=== PATIENT | male | born 1955 | race Caucasian/White ===

== ENCOUNTER → 2021-01-28 10:12 | Outpatient (BNVA) | payer MEDICARE, SELFPAY | PROVIDERS: PCP Internal Medicine; Visit Provider Urology | DX: N40.0 Benign prostatic hyperplasia without lower urinary tract symptoms (principal) | CPT/HCPCS: 99202 ==

== ENCOUNTER → 2021-02-03 10:25 | Outpatient (BNVA) | payer MEDICARE, SELFPAY | PROVIDERS: PCP Internal Medicine; Visit Provider Surgery Vascular Surgery | DX: I80.8 Phlebitis and thrombophlebitis of other sites (principal) | CPT/HCPCS: 99202 ==

== ENCOUNTER 2021-12-05 10:50 | Outpatient (REF) | payer MEDICARE, SELFPAY ==
[2021-12-05 12:37] LABS: PSA,Total (Free>4and<10) 0.52 ng/mL (0.00-4.00)
== END 2021-12-05 10:51 | disposition home or self-care (01) ==
LOC: HO.LAB 10:50
PROVIDERS: PCP Internal Medicine; Visit Provider Urology
DX: Z12.5 Encounter for screening for malignant neoplasm of prostate (principal); N40.0 Benign prostatic hyperplasia without lower urinary tract symptoms
CPT/HCPCS: 36415; 84153

== ENCOUNTER 2021-12-13 10:38 | Emergency (ER) | payer MEDICARE, SELFPAY ==
--- NOTE | ~2021-12-13 | CT_ITS ---
EXAMINATION: CT CERVICAL SPINE WITHOUT CONTRAST CLINICAL INFORMATION: Fall, trauma, ETOH. COMPARISON: CT head 12/13/2021 TECHNIQUE: Multidetector volumetric CT imaging of the cervical spine is performed without contrast in the axial plane. Additional 2D reformatted coronal and sagittal images are generated on the CT workstation and uploaded to PACS. This CT examination was performed using dose optimization techniques as appropriate, variously including the following: *Automated exposure control *Adjustment of mA and/or kV according to patient size (this includes techniques or standardized protocols for targeted exams where dose is matched to indication/reason for exam; i.e. extremities or head) *Use of iterative reconstruction technique DLP: 508 mGy-cm FINDINGS: There is no vertebral compression fracture, fracture line, spondylolisthesis, or prevertebral soft tissue swelling. The craniocervical junction appears normal. The odontoid appears intact. There is normal cervical lordosis. There are degenerative disc changes with disc narrowing and vertebral spurring C4-C5, C5-C6, and C6-C7. There is variable facet degeneration, greatest left C2-C3. There is no apical pneumothorax. CT/CT cervical spine wo con IMPRESSION: 1. No acute bony abnormality or prevertebral soft tissue swelling. 2. Degenerative disc and degenerative facet changes.
--- NOTE | ~2021-12-13 | CT_ITS ---
EXAMINATION: CT HEAD WITHOUT CONTRAST CLINICAL INFORMATION: Fall, trauma, EtOH COMPARISON: Outside CT had noncontrast 11/07/2010 ([facility], [place]). TECHNIQUE: Contiguous axial imaging was performed from the skull base to vertex without intravenous administration of contrast. Additional 2-D coronal and sagittal reformatted images are generated on the CT workstation and uploaded to PACS. This CT examination was performed using dose optimization techniques as appropriate, variously including the following: *Automated exposure control *Adjustment of mA and/or kV according to patient size (this includes techniques or standardized protocols for targeted exams where dose is matched to indication/reason for exam; i.e. extremities or head) *Use of iterative reconstruction technique DLP: 854 mGy-cm FINDINGS: There is no intracranial hemorrhage, hematoma, or extra-axial fluid collection. The ventricles are normal in size. There is no hydrocephalus, edema, or mass effect. The mcdonald-white matter differentiation appears well preserved . There are scattered benign coarse calcifications along the falx. There is no visible acute territorial infarct or mass lesion. The calvarium appears intact. There is no pneumocephalus or orbital emphysema. There is circumferential thick rind of mucosal thickening right maxillary sinus and lesser circumferential thickening left maxillary sinus. No visible air-fluid levels. CT/CT head/brain wo con IMPRESSION: -No acute intracranial abnormality. -Mucosal thickening maxillary sinuses, greater on right.
[2021-12-13 10:51] VITALS: BP 116/52; BP 135/75; PULSE 85; PULSE 97; RESP 14; O2SAT 93; O2SAT 95; BMI 24.3
--- NOTE | 2021-12-13 11:00 | ECG_ITS ---
Test Reason : fall Blood Pressure : / mmHG Vent. Rate : 066 BPM Atrial Rate : 066 BPM P-R Int : 172 ms QRS Dur : 096 ms QT Int : 400 ms P-R-T Axes : 033 -24 042 degrees QTc Int : 419 ms Normal sinus rhythm with sinus arrhythmia Normal ECG No previous ECGs available Referred By: Anu Jose Electronically Signed By:JHON LÓPEZ
--- NOTE | 2021-12-13 11:01 | ED.FALL ---
HPI - Fall General Chief Complaint: Fall Stated Complaint: FALL/WEAK Time Seen by Provider: 12/13/21 10:51 Source: patient and EMS Mode of arrival: EMS Limitations: no limitations History of Present Illness HPI Narrative: Patient comes to the emergency room after falling. Patient admits that he has been having a rough time, recently broke up with his girlfriend. Patient has been drinking ?a lot ? of vodka. Patient was going to his physician's office this morning across the street to get checked up. Patient tripped, fell and hit his forehead. Patient states that he drank a lot and does not remember field loss consciousness or not. Patient denies any headache, no pain anywhere. Patient states that he was planning to go out golfing with his friends later today. Patient denies suicidal or homicidal ideation Related Data Home Medications Medication Instructions Recorded Confirmed albuterol sulfate 90 mcg/actuation 0 mcg inhalation 01/28/21 aerosol inhaler metoprolol succinate 25 mg 25 mg PO DAILY 01/28/21 tablet,extended release 24 hr Allergies Allergy/AdvReac Type Severity Reaction Status Date / Time No Known Allergies Allergy Verified 12/13/21 09:22 Review of Systems Review of Systems: Constitutional : No Weight loss, No Fever, No Chills, No Night Sweats, No Fatigue, No Malaise ENT/Mouth : No Hearing loss, No Ear Pain, No Nasal Congestion, No Sinus Pain, No Hoarseness, No sore throat, No Rhinorrhea, No Swallowing Difficulty Eyes: No Eye Pain, No Swelling, No Redness, No Foreign Body, No Discharge, No Vision Changes Cardiovascular : No Chest Pain, No SOB, No Dyspnea on Exertion, No Orthopnea, No Edema, No Palpitations Respiratory : No Cough, No Sputum, No Wheezing, No Smoke Exposure, No Dyspnea Gastrointestinal : No Nausea, No Vomiting, No Diarrhea, No Constipation, No abdominal Pain, No Hematochezia, No Melena Genitourinary : no irregular bleeding, No Dysuria, No Urinary Frequency, No Hematuria, No Urinary Incontinence, No Urgency, No Flank Pain, No Urinary Flow Changes, No Hesitancy Musculoskeletal : No joint pain, No Myalgias, No Joint Swelling Skin : Complaining a small abrasion to the forehead Neuro : No Weakness, No Numbness, No Paresthesias, No Loss of Consciousness, No Dizziness, No Headache Psych : No Anxiety/Panic, No Depression, No SI/HI/AH/VH, sad, recently split up with girlfriend Heme/Lymph: No Bruising, No Bleeding,No Lymphadenopathy Endocrine : No Polyuria, No Polydipsia, No Temperature Intolerance PMF Past Medical History Medical History Patient denies medical problems Surgical History History of surgery Social History Social History Patient Tobacco Use Status: Never used Tobacco Advance Directives: Yes Advance Directives Information Provided: Yes Advance Directives on File: No Physical Exam Vital Signs: Vital Signs: Last Vital Signs Pulse 97 12/13/21 10:51 Resp 14 12/13/21 10:51 BP 135/75 12/13/21 10:51 Pulse Ox 95 12/13/21 10:51 O2 Del Method 12/13/21 10:51 BMI result Body Mass Index 24.3 Const: Other: Appearance: Alert. Oriented X3. No acute distress. Eyes: Pupils equal, round and reactive to light. ENT: Pharynx normal. Neck: Normal inspection. Neck supple. No lymph nodes noted. No crepitus CVS: Normal heart rate and rhythm. Pulses normal. Normal S1 and S2 Respiratory: No respiratory distress. Breath sounds normal. No Wheezing. No rales Abdomen: Soft and nontender. No rigidity. No distention. Skin: Skin warm and dry. Normal skin color. Normal skin turgor. Extremities: No lower extremity edema. No Lacerations. No Rash Neuro: Oriented X 3. No motor deficit. No sensory deficit. Moving all extremities. No slurred speech. CN 2 through 12 grossly intact Psych: calm, cooperative, crying, sad Course Course Course Narrative: Head and cervical spine CT pending. Blood sugar 119, EKG pending. Head and cervical spine CT negative for acute findings. Patient is walking steadily on both his feet. Time, patient is sleeping. Shortly patient will be discharged. Patient is clinically sober, patient was in the emergency room for 4 hours. Patient's gait was retested, remained stable, feeling well. Patient ready for discharge MDM - Fall Lab Data Labs: Lab Results 12/13/21 Range/Units 11:04 POC Glucose 119 H (60-115) mg/dL Imaging Data Head and cervical spine CT: Radiologist's impression: EXAMINATION: CT HEAD WITHOUT CONTRAST CLINICAL INFORMATION: Fall, trauma, EtOH? COMPARISON: Outside CT had noncontrast 11/07/2010 ([facility], [place]). TECHNIQUE: Contiguous axial imaging was performed from the skull base to vertex without intravenous administration of contrast.? Additional 2-D coronal and sagittal reformatted images are generated on the CT workstation and uploaded to PACS. This CT examination was performed using dose optimization techniques as appropriate, variously including the following: *Automated exposure control *Adjustment of mA and/or kV according to patient size (this includes techniques or standardized protocols for targeted exams where dose is matched to indication/reason for exam; i.e. extremities or head) *Use of iterative reconstruction technique DLP: 854 mGy-cm FINDINGS: There is no intracranial hemorrhage, hematoma, or extra-axial fluid collection.? The ventricles are normal in size. There is no hydrocephalus, edema, or mass effect.? The mcdonald-white matter differentiation appears well preserved .? There are scattered benign coarse calcifications along the falx.? There is no visible acute territorial infarct or mass lesion. The calvarium appears intact. There is no pneumocephalus or orbital emphysema.? There is circumferential thick rind of mucosal thickening right maxillary sinus and lesser circumferential thickening left maxillary sinus. No visible air-fluid levels. CT/CT head/brain wo con IMPRESSION: -No acute intracranial abnormality. -Mucosal thickening maxillary sinuses, greater on right. Discharge Plan Discharge Clinical Impression: Fall, Alcohol intoxication Patient Disposition: Home, Self-Care Instructions: Alcohol Intoxication (ED), Fall Prevention (ED) Additional Instructions: Please follow-up with your primary care physician tomorrow. If you have any worsening or new symptoms, please return to the emergency room or call 911 Prescriptions: No Action metoprolol succinate 25 mg tablet extended release 24 hr 25 mg PO DAILY albuterol sulfate 90 mcg/actuation HFA aerosol inhaler 0 mcg inhalation
[2021-12-13 11:09] LABS: Glucose, Whole Blood 119 mg/dL (60-115)
--- NOTE | 2021-12-13 14:37 | PC.NURSE ---
discussed dc with md- pt steady independent gait at this time. aox3. md states ok to dc home by self.
== END 2021-12-13 14:41 | disposition home or self-care (01) ==
PROVIDERS: Emergency Provider Emergency Medicine; PCP Internal Medicine
DX: F10.920 Alcohol use, unspecified with intoxication, uncomplicated (principal); Y90.9 Presence of alcohol in blood, level not specified; S00.81XA Abrasion of other part of head, initial encounter; W01.198A Fall on same level from slipping, tripping and stumbling with subsequent striking against other object, initial encounter; Y93.89 Activity, other specified; Y92.480 Sidewalk as the place of occurrence of the external cause; Y99.9 Unspecified external cause status
CPT/HCPCS: 70450; 72125; 82947; 93005; 99284; 99285